=== PATIENT | male | born 1955 | race Caucasian/White ===

== ENCOUNTER → 2017-04-08 | Outpatient (CLI) | payer OTHER ==
[~2017-04-08] MED LIST: ASCO500C43 PO; ASPEC325 PO; CETI10TA84 PO; CHOL1CAP57 PO; CLC100 PO; FEBU40TA PO; HYDR-5688 PO; OPTIRAY 300 IV PRN; OXYSR10 PO
--- NOTE | 2017-04-08 14:59 | DIAGNOSTIC IMAGING REPORT ---
IVP W/OR W/O TOMOGRAMS HISTORY: 61 years-old Male Z85.51 History of malignant neoplasm of bladder history of malignant bladder neoplasm. COMPARISON: None available TECHNIQUE: IVP with tomograms was obtained following the intravenous administration of 100 mL Optiray 300 FINDINGS: There is symmetric renal function bilaterally. 1.9 x 0.8 cm density overlying the lateral aspect of the interpolar left kidney suggests calculus. Probable phleboliths of the right hemipelvis. Multilevel severe degenerative changes of the spine. The right renal collecting system, renal pelvis and bilateral ureters appear unremarkable. There is nonopacification of the proximal left renal pelvis, inferior pole infundibula, interpolar and lower pole calyces. The left ureter appears unremarkable. No hydronephrosis. Minimal post void residual of the bladder. No bladder filling defects identified. IMPRESSION: 1. Large filling defect of the left renal pelvis, inferior pole infundibula, interpolar and lower pole calyces persists throughout the study. Probable large calculus of the lateral interpolar left kidney is noted. Further evaluation with ureteroscopy recommended. 2. No hydronephrosis. Right renal collecting system, ureters and urinary bladder are unremarkable. The above report was generated using voice recognition software. It may contain grammatical, syntax or spelling errors. Electronically signed by: Armando Diaz M.D. 04/08/2017 2:58 PM Dictated Date/Time: 04/08/2017 2:52 PM
== END | disposition home or self-care (01) ==
LOC: C.RAD 12:22
PROVIDERS: ATTEND Urology
DX: Z85.51 Personal history of malignant neoplasm of bladder (principal)

== ENCOUNTER → 2017-04-09 | Outpatient (CLI) | payer OTHER ==
[~2017-04-09] MED LIST changes: -OPTIRAY 300 IV PRN
== END | disposition home or self-care (01) ==
LOC: C.PATHSPEC 10:51
PROVIDERS: ATTEND Urology
DX: C67.9 Malignant neoplasm of bladder, unspecified (principal)

== ENCOUNTER → 2017-04-16 | Outpatient (CLI) | payer OTHER ==
[~2017-04-16] MED LIST changes: +OPTIRAY 320 IV PRN
--- NOTE | 2017-04-16 13:52 | DIAGNOSTIC IMAGING REPORT ---
CT UROGRAM CLINICAL HISTORY: Gross hematuria. Reported history of bladder cancer. COMPARISON STUDY: IV pyelogram dated 04/08/2017. TECHNIQUE: Before and following the IV administration of 93 cc of Optiray 320, CT urogram of the abdomen and pelvis is performed from the lung bases to the proximal femora. Images are reviewed in the axial, sagittal, and coronal planes. IV contrast was administered without complication. A dose lowering technique was utilized adhering to the principles of ALARA. CT DOSE: 2776.30 mGycm FINDINGS: Lung bases: The heart is normal in size and without pericardial effusion. The mitral annulus is densely calcified. The lung bases are clear. There is a small hiatal hernia. Liver: The contrast-enhanced liver is normal in size, contour, and attenuation. There is no intrahepatic biliary ductal dilatation. The hepatic veins and portal veins are patent. Gallbladder: Unremarkable. Spleen: Normal in size and attenuation. Pancreas: Unremarkable. Adrenal glands: Unremarkable. Kidneys and ureters: The contrast enhanced kidneys are normal in size and without hydronephrosis. There is a 3 mm nonobstructing calculus in the lower pole of the right kidney. No left renal calculi are identified on the unenhanced images. The kidneys enhance and excrete symmetrically. Scattered subcentimeter cortical hypodensities likely represent cysts but are too small for definitive characterization. Parapelvic cysts are noted bilaterally, left greater than right. There is no enhancing renal cortical mass lesion identified. There is no evidence of urothelial lesion within the renal pelvis bilaterally or along the course of either ureter. The proximal to mid right ureter is not well opacified by excreted contrast. Abdominal vasculature: The abdominal aorta is normal in course and caliber noting moderate atherosclerotic calcification. Bowel: There is moderate sigmoid diverticulosis without CT evidence of acute diverticulitis. No bowel obstruction is seen. A duodenal diverticulum is incidentally noted. The appendix is well-visualized and normal. Peritoneum: There is no intraperitoneal free air or abdominal ascites. There is a large fat-containing umbilical hernia. Lymphadenopathy: None. Pelvic viscera: The bladder is normal as visualized, as are the prostate and seminal vesicles. Skeletal structures: There is moderate to advanced lumbosacral spondylosis. Large posterior disc osteophyte complexes are seen from L2 to L3 through L5-S1 likely contribute to multilevel acquired central canal stenosis. No lytic or blastic bony lesions are seen. IMPRESSION: 1. The kidneys enhance and excrete symmetrically. There is no hydronephrosis. 2. There is a 3 mm nonobstructing right renal calculus. No left renal calculi are identified. 3. There is no enhancing cortical mass. No evidence of urothelial lesion is seen in the renal pelvis bilaterally or along the course of the ureters. 4. Parapelvic cysts are identified, left greater than right. This likely corresponds to the abnormality suggested in the left renal pelvis on the recent IV pyelogram. 5. The bladder is normal as visualized. 6. Moderate sigmoid diverticulosis without CT evidence of acute diverticulitis. 7. Additional findings as above. Electronically signed by: Carlos Brown M.D. 04/16/2017 1:50 PM Dictated Date/Time: 04/16/2017 1:40 PM
== END | disposition home or self-care (01) ==
LOC: C.CTS 08:02
PROVIDERS: ATTEND Urology
DX: R31.0 Gross hematuria (principal); R93.8 Abnormal findings on diagnostic imaging of other specified body structures; Z85.51 Personal history of malignant neoplasm of bladder; N20.0 Calculus of kidney; K57.30 Diverticulosis of large intestine without perforation or abscess without bleeding